=== PATIENT | female | born 1985 ===

== ENCOUNTER 2022-03-17 13:15 | Inpatient (IN) | payer OTHER ==
[~2022-03-17] VITALS: Ht 160 cm; Wt 97.5 kg
== END 2022-03-28 13:10 | disposition home or self-care (01) | DRG 807 ==
LOC: EDSTATUS 03-24 14:30 → OB/GYN 03-26 05:58 → LDR 03-26 05:58 → OB/GYN 03-26 14:29 → LDR 03-26 14:30 → OB/GYN 03-28 13:10
PROVIDERS: ADMIT Obstetrics & Gynecology; ATTEND Obstetrics & Gynecology
PROC: 10E0XZZ Delivery of Products of Conception, External Approach (ICD-10-PCS; principal; 2022-03-26)
PROC: 0HQ9XZZ Repair Perineum Skin, External Approach (ICD-10-PCS; 2022-03-26)
PROC: 4A1HXCZ Monitoring of Products of Conception, Cardiac Rate, External Approach (ICD-10-PCS; 2022-03-26)
DX: O70.0 First degree perineal laceration during delivery (principal); Z37.0 Single live birth; Z3A.39 39 weeks gestation of pregnancy; Z20.822 Contact with and (suspected) exposure to COVID-19